=== PATIENT | male | born 1955 | race Caucasian/White ===

== ENCOUNTER 2016-10-05 01:50 | Emergency (ER) | payer BC, OTHER ==
[~2016-10-05] VITALS: Ht 177.8 cm; Wt 74.8 kg
[2016-10-05 01:50] VITALS: BP_SYST 133
[~2016-10-05 01:50] MED LIST: GLIP10TA11 PO; GLIPIZIDE; HUMULOG SUBCUT; INSU10VI4 SUBCUT; INSULIN; LISI10TA5 PO; LISINOPRIL; SITA1TAB10 PO
--- NOTE | 2016-10-05 01:50 | NUR ---
Patient to ER bed 1 to gown for evaluation. Side rails up. Report given to RODRIGUE Ordoñez.
--- NOTE | 2016-10-05 01:52 | NUR ---
Per patient, paramedics state patient was found with altered level of consciousness, found on the floor of his house with bleeding to bilateral nares. Patient AAOx4 when present in ER, responds appropriately when spoken to. Slight swelling noted to pt's nose, dried blood present to throat. Pt denies any other complaints.
--- NOTE | 2016-10-05 01:55 | NUR ---
ER Dr. Granados at bedside examining patient.
[2016-10-05] MEDS ORDERED: NACL 0.9% 1,000 ML IV ONE (02:00)
[2016-10-05] MEDS ORDERED: ROSU20TA PO (02:19)
[2016-10-05] MEDS ORDERED: LOSA1TAB3 PO (02:19)
[2016-10-05] MEDS ORDERED: [UNRECOGNIZED DRUG - OTHER] (02:19)
--- NOTE | 2016-10-05 02:19 | NUR ---
Medication reconciliation completed with information provided by patient's family. Any prior medication reconciliation on file was reviewed and corrected.
[2016-10-05 02:36] LABS: BASOPHILS % (AUTO) 0.4 % (0.0-2.0); EOSINOPHILS # (AUTO) 0.7 K/uL (0.0-0.4); EOSINOPHILS % (AUTO) 6.6 % (0.0-4.0); HEMATOCRIT 35.9 % (36-54); HEMOGLOBIN 11.9 g/dL (14.0-18.0); LYMPHOCYTES # (AUTO) 1.4 K/uL (1.0-5.5); LYMPHOCYTES % (AUTO) 12.8 % (20.5-51.5); MEAN CORPUSCULAR HEMOGLOBIN 30 pg (27-31); MEAN CORPUSCULAR HGB CONC 33 % (32-36); MEAN CORPUSCULAR VOLUME 89 fL (79.0-98.0); MONOCYTES # (AUTO) 0.9 K/uL (0.0-1.0); MONOCYTES % (AUTO) 8.7 % (1.7-9.3); NEUTROPHILS # (AUTO) 7.6 K/uL (1.8-7.7); NEUTROPHILS % (AUTO) 71.5 % (40.0-70.0); PLATELET COUNT (AUTO) 232 K/uL (130-430); RED BLOOD CELL COUNT(AUTO) 4.03 MIL/uL (4.2-6.2); RED CELL DISTRIBUTION WIDTH 13.1 % (9.0-15.0); WHITE BLOOD COUNT (AUTO) 10.6 K/uL (4.8-10.8)
[2016-10-05 02:39] LABS: ANION GAP 13 (5-15); CALCIUM 8.6 mg/dL (8.4-11.0); CHLORIDE 102 mmol/L (98-107); CREATININE 1.56 mg/dL (0.55-1.30); GLUCOSE 134 mg/dL (70-99); POTASSIUM 3.4 mmol/L (3.5-5.1); SODIUM SERUM 141 mmol/L (136-145); UREA NITROGEN, BLOOD 23 mg/dL (8-21)
[2016-10-05 02:41] LABS: GFR AFRICAN AMERICAN 59 mL/min (>90)
[2016-10-05 02:48] LABS: ALANINE AMINOTRANSFERASE 22 U/L (12-78); ALBUMIN 3.8 g/dL (3.4-4.8); ASPARTATE AMINOTRANSFERASE 21 U/L (10-37); TOTAL BILIRUBIN 0.5 mg/dL (0.0-1.0); TOTAL PROTEIN, SERUM 6.8 g/dL (6.4-8.3)
--- NOTE | 2016-10-05 03:50 | NUR ---
Pt stable, no signs of distress noted. Vital signs within therapeutic range. Will continue to monitor pt.
[2016-10-05 04:33] VITALS: BP_SYST 135
--- NOTE | 2016-10-05 04:33 | NUR ---
Patient given written and verbal discharge instructions and verbalizes understanding. ER MD discussed with patient the results and treatment provided. Patient in stable condition. ID arm band removed. IV catheter removed intact and dressing applied, no active bleeding. Patient educated on pain management and to follow up with PMD. Pain Scale 0/10. Opportunity for questions provided and answered.
== END 2016-10-05 04:33 | disposition home or self-care (01) ==
LOC: SED 01:50
DX: S00.33XA Contusion of nose, initial encounter (principal); S00.81XA Abrasion of other part of head, initial encounter; S90.414A Abrasion, right lesser toe(s), initial encounter; E11.649 Type 2 diabetes mellitus with hypoglycemia without coma; W19.XXXA Unspecified fall, initial encounter; Y93.89 Activity, other specified; Y92.89 Other specified places as the place of occurrence of the external cause; Y99.8 Other external cause status
CPT/HCPCS: 36415; 70450; 70486; 80053; 82962; 84484; 85025; 85610; 85730; 93005; 96360; 96361; 99285; J7030

== ENCOUNTER 2017-02-21 11:40 | Emergency (ER) | payer BC ==
[~2017-02-21] VITALS: Ht 175.3 cm; Wt 72.6 kg
[~2017-02-21 11:40] MED LIST changes: +LOSA1TAB3 PO; +ROSU20TA PO; +[UNRECOGNIZED DRUG - OTHER]
[2017-02-21 11:50] VITALS: BP_SYST 138
--- NOTE | 2017-02-21 11:50 | NUR ---
Placed in room 06 . Placed on financial controller, blood pressure machine and pulse oximeter. To gown for exam. Side rails up. Report given to Henri HUSAIN .
--- NOTE | 2017-02-21 11:52 | NUR ---
ER at bedside examining patient.
--- NOTE | 2017-02-21 11:55 | NUR ---
Pt presents to ER after hypoglycemic episode this morning. Pt's reports that as pt was getting ready to leave the house, he began to have a seizure that lasted approximately 1 min. Pt does not recall the seizure. Pt's reports blood sugar was 20 at home; orange juice was given to pt. When paramedics arrived, blood sugar still had not increased. reports that pt had hypoglycemic episode of this magnitude last Thursday, but it resolved and hospitalization was not necessary. Pt reports history of DM, which he reports to manage properly at home. Pt denies N/V/D/D/CHEST PAIN/SOB. Pt in no acute distress; sitting on gurney AOX4; at bedside.
--- NOTE | 2017-02-21 11:58 | NUR ---
Pt presents to ED for hypoglycemia BS 48 in triage. Verbal order received for D50 1 amp. Pt h/o IDDM.
[2017-02-21] MEDS ORDERED: DEXTROSE 50% JECT 50 ML DISP.SYRIN ONE (11:59)
--- NOTE | 2017-02-21 12:00 | NUR ---
# 20 gauge angiocath placed to LAC. Use of asceptic technique. Opsite placed over site. Blood return noted. Blood for lab drawn from site. Flushed with 10 cc of normal saline. No evidence of infiltration noted. Patient tolerated well.
--- NOTE | 2017-02-21 12:01 | NUR ---
D50 given per verbal order. Pt tolerated well. BS 225 after D50. Will continue to monitor.
[2017-02-21] MEDS ORDERED: DEXTROSE 50% JECT 50 ML DISP.SYRIN IVP ONE (12:15)
[2017-02-21 12:24] LABS: BASOPHILS % (AUTO) 0.4 % (0.0-2.0); EOSINOPHILS # (AUTO) 0.8 K/uL (0.0-0.4); HEMATOCRIT 38.8 % (36-54); LYMPHOCYTES # (AUTO) 1.5 K/uL (1.0-5.5); MEAN CORPUSCULAR HEMOGLOBIN 30 pg (27-31); MEAN CORPUSCULAR HGB CONC 34 % (32-36); MEAN CORPUSCULAR VOLUME 89 fL (79.0-98.0); MONOCYTES # (AUTO) 0.7 K/uL (0.0-1.0); NEUTROPHILS # (AUTO) 7.6 K/uL (1.8-7.7); NEUTROPHILS % (AUTO) 70.6 % (40.0-70.0); PLATELET COUNT (AUTO) 310 K/uL (130-430); RED BLOOD CELL COUNT(AUTO) 4.36 MIL/uL (4.2-6.2); RED CELL DISTRIBUTION WIDTH 12.9 % (9.0-15.0); WHITE BLOOD COUNT (AUTO) 10.6 K/uL (4.8-10.8)
[2017-02-21 12:37] LABS: AMYLASE 34 U/L (0-100); LIPASE 65 U/L (73-393)
[2017-02-21 12:41] LABS: PROTHROMBIN TIME 10.6 SECS (9.5-12.5)
[2017-02-21 12:56] LABS: CALCIUM 9.9 mg/dL (8.4-11.0); CREATININE 1.19 mg/dL (0.55-1.30); POTASSIUM 3.7 mmol/L (3.5-5.1)
--- NOTE | 2017-02-21 13:08 | NUR ---
Blood sugar checked at bedside. BS is 256. Dr. Michelle informed.
--- NOTE | 2017-02-21 14:06 | NUR ---
Patient given written and verbal discharge instructions and verbalizes understanding. ER MD DOMINGUEZ discussed with patient the results and treatment provided. Patient in stable condition. ID arm band removed. IV catheter removed intact and dressing applied, no active bleeding. NO RX given. Patient educated on pain management and to follow up with PMD. Pain Scale 0. Opportunity for questions provided and answered.
[2017-02-21 14:10] VITALS: BP_SYST 135
== END 2017-02-21 14:08 | disposition home or self-care (01) ==
LOC: SED 11:40
DX: E10.649 Type 1 diabetes mellitus with hypoglycemia without coma (principal); Z90.89 Acquired absence of other organs; Z79.4 Long term (current) use of insulin; Z91.013 Allergy to seafood
CPT/HCPCS: 36415; 80048; 82150; 82962; 83690; 85025; 85610; 85730; 93005; 96374; 99285; J7030; J7060

== ENCOUNTER 2018-11-30 21:27 | Emergency (ER) | payer BC ==
[~2018-11-30] VITALS: Ht 175.3 cm; Wt 70.3 kg
[~2018-11-30 21:27] MED LIST changes: -ROSU20TA PO; +ROSU20TA2 PO
[2018-11-30 21:40] VITALS: BP_SYST 158
[2018-11-30] MEDS ORDERED: ROSU20TA32 PO (23:10)
[2018-11-30 23:41] LABS: CALCIUM 9.2 mg/dL (8.4-11.0); CREATININE 1.3 mg/dL (0.55-1.30); POTASSIUM 4.4 mmol/L (3.5-5.1)
[2018-11-30 23:55] VITALS: BP_SYST 132
== END 2018-11-30 23:55 | disposition home or self-care (01) ==
LOC: SED 21:27
DX: E11.65 Type 2 diabetes mellitus with hyperglycemia (principal); E11.649 Type 2 diabetes mellitus with hypoglycemia without coma; R56.9 Unspecified convulsions; Z91.013 Allergy to seafood; Z79.899 Other long term (current) drug therapy
CPT/HCPCS: 36415; 80048; 82962; 99283